=== PATIENT | female | born 1965 | race Caucasian/White ===

== ENCOUNTER 2021-08-22 18:24 | Observation (INO) | payer MEDICARE ==
[~2021-08-22] VITALS: Ht 160 cm; Wt 127.1 kg
[~2021-08-22 18:24] MED LIST: ALBU90I INH; ALBU90OI INH; AMIT25 PO; ARIP10 PO; CARB200 PO; CIPR500 PO; CITA20 PO; COMBIVENT RESPIM4 GM INH; CYCL10 PO; Cymbalta30 MG PO; DOXY100 PO; DULO60 PO; ERGO50000 PO; Esgic Tablet1 EACH PO; FLUSAL2505 IH; FURO20 PO; Flexeril 10 mg10 MG PO; GABA300 PO; GUAI600T33 PO; HYDACE10B PO; HYDSUL200 PO; Imitrex100 MG PO; Imitrex25 MG PO; LEVFLO500 PO; LOPE2C PO; METPRE4DP PO; MORP30 PO; NORT10 PO; OSEL75CA PO; OXYC10ER PO; PANT40 PO; PENVK500 PO; PHENA200 PO; POTCHL10ER PO; PRED10 PO; PRED20 PO; PREG200; PREG200 PO; PROM25 PO; Percocet 5-3251 EACH PO; SUMA25 PO; SUMA6I SC; TAMS.4ER PO; TIOT18 IH; TORSE20 PO; Valium5 MG PO
[2021-08-22 19:06] LABS: BASOPHILS ABSOLUTE AUTO 0.03 K/mm3 (0.00-0.23); BASOPHILS PERCENT AUTO 0 % (0-2); EOSINOPHILS ABSOLUTE AUTO 0.01 K/mm3 (0.00-0.68); EOSINOPHILS PERCENT AUTO 0 % (0-6); Hematocrit 44.5 % (33.0-51.0); Hemoglobin 14.9 g/dL (11.5-16.0); IMMATURE GRAN ABSOLUTE AUTO 0.07 K/mm3 (0.00-0.10); IMMATURE GRAN PERCENT AUTO 0 % (0-1); LYMPHOCYTES ABSOLUTE AUTO 1.25 K/mm3 (0.84-5.20); LYMPHOCYTES PERCENT AUTO 8 % (21-46); MONOCYTES PERCENT AUTO 7 % (4-13); Mean Corpuscular HGB 27.7 pg (26.0-34.0); Mean Corpuscular HGB Conc 33.5 g/dL (31.5-36.5); Mean Corpuscular Volume 83 fL (80-100); Mean Platelet Volume 11.7 fL (9.1-12.4); NEUTROPHILS PERCENT AUTO 85 % (41-73); Platelet Count 203 K/mm3 (150-400); RDW Coefficient Variation 16.9 % (11.7-14.2); RDW Standard Deviation 48.9 fL (35.1-46.3); Red Blood Cell Count 5.37 M/mm3 (3.80-5.20); White Blood Cell Count 16.36 K/mm3 (4.00-11.30)
[2021-08-22 21:08] LABS: Albumin, Blood 3.3 g/dL (3.4-5.0); Albumin/Globulin Ratio 0.9 (0.8-1.8); Bilirubin, Total 0.5 mg/dL (0.1-1.0); Bun/Creatinine Ratio 21.3 (12.0-20.0); Creatinine, Blood 1.08 mg/dL (0.40-1.00); Globulin, Blood 3.7 g/dL (2.2-4.0); Potassium, Blood 3.2 mmol/L (3.5-5.5)
[2021-08-23 02:00] LABS: Albumin/Globulin Ratio 0.9 (0.8-1.8); Bilirubin, Total 1.1 mg/dL (0.1-1.0); Bun/Creatinine Ratio 22.2 (12.0-20.0); Calcium, Blood 8.5 mg/dL (8.5-10.1); Creatinine, Blood 0.95 mg/dL (0.40-1.00); Globulin, Blood 3.4 g/dL (2.2-4.0); Potassium, Blood 3.1 mmol/L (3.5-5.5); Total Protein, Blood 6.4 g/dL (6.4-8.2)
[2021-08-23] MEDS ORDERED: GABA300 PO (03:21)
[2021-08-23] MEDS ORDERED: PRAZ1 PO (03:22)
[2021-08-23] MEDS ORDERED: ATOR40TA PO (03:22)
[2021-08-23] MEDS ORDERED: OLAN2.5 PO (03:23)
[2021-08-23] MEDS ORDERED: Carvedilol12.5 MG PO (03:24)
[2021-08-23] MEDS ORDERED: FURO40 PO (03:24)
[2021-08-23] MEDS ORDERED: FLUVOXAMINE MA100 M1 PO (03:25)
[2021-08-23] MEDS ORDERED: PANT40 (03:25)
[2021-08-23] MEDS ORDERED: POTA8 PO (03:26)
[2021-08-23] MEDS ORDERED: ZYRTEC10 M2 PO (03:28)
[2021-08-23] MEDS ORDERED: AMLO5 PO (03:29)
[2021-08-23] MEDS ORDERED: ZENPEP DR 20,01 EACH PO (03:34)
[2021-08-23] MEDS ORDERED: CREON DR 12,001 EACH PO (03:35)
[2021-08-23] MEDS ORDERED: ALBU2.5V5 INH (03:36)
[2021-08-23] MEDS ORDERED: AZELASTINE137 MCG/01 (03:36)
[2021-08-23] MEDS ORDERED: UBRELVY50 MG PO (03:37)
[2021-08-23] MEDS ORDERED: SUBVENITE150 M5 PO (03:38)
[2021-08-23] MEDS ORDERED: Flonase 0.05% N16 GM (03:38)
--- NOTE | 2021-08-23 04:16 | NUR ---
SHIFT SUMMARY PT CAME TO THE FLOOR AND HAS FELT NAUSEAOUS AND WAVES OF EPIGASTRIC PAIN INTERMITTENTLY. MEDICATED PER MAY. PT STATED SHE HAD A SMALL YEAST RASH FORMING IN HER GLUTEAL FOLDS WHICH HAPPENS FREQUENTLY AT HOME. MED REC DONE. CALL [facility] IN [place].
[2021-08-23 08:42] LABS: Hematocrit 42.1 % (33.0-51.0); Hemoglobin 13.1 g/dL (11.5-16.0); Mean Corpuscular HGB Conc 31.1 g/dL (31.5-36.5); Mean Corpuscular Volume 87 fL (80-100); Mean Platelet Volume 12.1 fL (9.1-12.4); Platelet Count 174 K/mm3 (150-400); RDW Coefficient Variation 17.3 % (11.7-14.2); RDW Standard Deviation 52.6 fL (35.1-46.3); Red Blood Cell Count 4.85 M/mm3 (3.80-5.20); White Blood Cell Count 12.69 K/mm3 (4.00-11.30)
--- NOTE | 2021-08-23 19:41 | NUR ---
SUMMARY- PT /O X4, INDEPENDANT IN THE ROOM. COMPLAINING OF EPIGASTRIC PAIN INTERMITTANT LIKE A SHARP STABBING KNIFE. AT FIRST GIVING FENT 25MCG APPROX Q2 WITH PARTIAL RELRIF FROM 10/14-08/14. ONCE FENT ORDERED 50MCG, THAT TOOK CARE OF PAIN AND PT WAS ABLE TO BE UPAMBULATING AND STATED SHE FINALLY FELT COMFORTABLE. DID NOT NEED TO MEDICATE THE REST OF THE SHIFT. REQUIRED ZOFRAN ONCE FOR NAUSEA WITH RELEIF. PT STARTED ON CLEAR DIET. TOLERATING WITHOUT NAUSEA. UNABLE TO PERFORM MRCP RELATED TO PT'S GIRTH. DR BAGLEY AWARE. REPORTED ALL TO LAURY DIEGO.
[2021-08-24 04:41] LABS: Hematocrit 39.6 % (33.0-51.0); Hemoglobin 12.4 g/dL (11.5-16.0); Mean Corpuscular HGB 27.4 pg (26.0-34.0); Mean Corpuscular HGB Conc 31.3 g/dL (31.5-36.5); Mean Corpuscular Volume 87 fL (80-100); Mean Platelet Volume 11.4 fL (9.1-12.4); Platelet Count 155 K/mm3 (150-400); RDW Coefficient Variation 17.5 % (11.7-14.2); RDW Standard Deviation 54.3 fL (35.1-46.3); Red Blood Cell Count 4.53 M/mm3 (3.80-5.20); White Blood Cell Count 10.35 K/mm3 (4.00-11.30)
[2021-08-24 05:04] LABS: Albumin, Blood 2.7 g/dL (3.4-5.0); Albumin/Globulin Ratio 0.9 (0.8-1.8); Bun/Creatinine Ratio 15.4 (12.0-20.0); Calcium, Blood 8.7 mg/dL (8.5-10.1); Creatinine, Blood 0.97 mg/dL (0.40-1.00); Potassium, Blood 3.5 mmol/L (3.5-5.5); Total Protein, Blood 5.7 g/dL (6.4-8.2)
--- NOTE | 2021-08-24 06:34 | NUR ---
SHIFT SUMMARY PT HAVING ABD PAIN, MEDICATED PER EMAR WITH PAIN MEDS AND ZOFRAN. PT PLEASANT AND COOPERATIVE. PT WAS ABLE TO GET SOME SLEEP OFF AND ON THROUGHOUT THE NIGHT. CALL LIGHT IS WITHIN PT REACH.
--- NOTE | 2021-08-24 18:46 | NUR ---
SHIFT SUMMARY PATIENT A&OX4. INDEPENDENT IN ROOM. C/O ABD PAIN AND NAUSEA, MEDICATED PER MAY. ON CLEAR LIQUID DIET. TOLERATING BETTER DAY PROGRESSED. PLAN FOR PATIENT TO HAVE MRCP AT OUTPATIENT IMAGING TOMORROW AT 10AM. PAPER ORDER AND QUESTIONAIRE ON CHART TO BE SENT WITH PATIENT. VSS. WILL CONTINUE TO MONITOR.
[2021-08-25] MEDS ORDERED: TRAZ50 PO (03:55)
[2021-08-25] MEDS ORDERED: ATROVENT HFA12.9 GM INH (04:03)
[2021-08-25] MEDS ORDERED: KLONOPIN0.5 M8 PO (04:06)
[2021-08-25] MEDS ORDERED: OZEMPIC0.25 MG/0. SC (04:06)
--- NOTE | 2021-08-25 04:50 | NUR ---
SHIFT SUMMARY ADMITTED FOR ABDOMINAL PAIN. FULL CODE. PLAN IS FOR MRCP SCAN TODAY AT [facility] IN [place]. SHE IS ON A CLEAR LIQUID DIET WHICH SHE FREQUENTLY OBJECTS TO. SHE IS INDEPENDENT AND WALKS IN THE HALLS. ON RA. A&O X4. MEDICATED FOR PAIN & NAUSEA THIS SHIFT.
[2021-08-25 05:54] LABS: Albumin, Blood 3.2 g/dL (3.4-5.0); Albumin/Globulin Ratio 0.9 (0.8-1.8); Bilirubin, Total 1.2 mg/dL (0.1-1.0); Bun/Creatinine Ratio 12.9 (12.0-20.0); Calcium, Blood 9.2 mg/dL (8.5-10.1); Creatinine, Blood 1.24 mg/dL (0.40-1.00); Globulin, Blood 3.4 g/dL (2.2-4.0); Potassium, Blood 3.9 mmol/L (3.5-5.5); Total Protein, Blood 6.6 g/dL (6.4-8.2)
--- NOTE | 2021-08-25 17:06 | NUR ---
SHIFT SUMMARY PATIENT IS ALERT AND ORIENTED X4. PATIENT HAS BEEN IND IN ROOM THIS SHIFT. PATIENT HAS TAKEN A SHOWER. PATIENT HAD NO ACUTE EVENTS THIS SHIFT. PATIENT LEFT FOR AN OUTPATIENT MRCP SCAN AND IS AWAITING RESULTS FROM MRCP SCAN. PATIENT HAS BEEN HAVING EPIGASTRIC PAIN AND MEDICATED PER EMAR. VITAL SIGNS REVIEWED. BED IN LOCKED AND LOWERED POSITION. WILL CONTINUE CARE UNTIL SHIFT CHANGE.
--- NOTE | 2021-08-26 01:03 | NUR ---
08/26/21 PATIENT WENT DOWN TO THE COFFEE CART AND BOUGHT CHICKEN AND A SALAD. PATIENT DID NOT EAT THE SALAD, OR DRINK THE COFFEE BUT ATE THE CHICKEN. PATIENT STATES SHE FORGOT SHE WAS ON A CLEAR LIQUID DIET. PT DENEIS PAIN AT THIS TIME, WITH CONTINUE TO MONITOR.
[2021-08-26 04:39] LABS: Hematocrit 43.2 % (33.0-51.0); Hemoglobin 13.3 g/dL (11.5-16.0); Mean Corpuscular HGB 27.2 pg (26.0-34.0); Mean Corpuscular HGB Conc 30.8 g/dL (31.5-36.5); Mean Corpuscular Volume 88 fL (80-100); Mean Platelet Volume 11.6 fL (9.1-12.4); Platelet Count 160 K/mm3 (150-400); RDW Coefficient Variation 16.8 % (11.7-14.2); RDW Standard Deviation 52.5 fL (35.1-46.3); Red Blood Cell Count 4.89 M/mm3 (3.80-5.20); White Blood Cell Count 9.64 K/mm3 (4.00-11.30)
[2021-08-26 04:56] LABS: Alanine Aminotransfer (ALT/SGP 151 U/L (12-78); Albumin/Globulin Ratio 0.8 (0.8-1.8); Alk Phos 261 U/L (50-136); Anion Gap 8 mmol/L (6-16); Aspartate Aminotrans (AST/SGOT 47 U/L (12-37); Bilirubin, Total 0.6 mg/dL (0.1-1.0); Blood Urea Nitrogen 14 mg/dL (8-24); Bun/Creatinine Ratio 10.9 (12.0-20.0); CO2, Blood 24 mmol/L (21-32); Calcium, Blood 9.2 mg/dL (8.5-10.1); Chloride, Blood 104 mmol/L (98-108); Creatinine, Blood 1.29 mg/dL (0.40-1.00); Globulin, Blood 3.6 g/dL (2.2-4.0); Glomerular Filtration Rate 49 (60-); Glucose, Blood 132 mg/dL (70-99); Potassium, Blood 3.9 mmol/L (3.5-5.5); Sodium, Blood 136 mmol/L (136-145); Total Protein, Blood 6.6 g/dL (6.4-8.2); Triglycerides 221 mg/dL (30-160)
--- NOTE | 2021-08-26 06:11 | NUR ---
Rn summary: Patient was medicated x1 for nausia and x1 for abd pain. Patient has been very sleepy, sitting on the edge of bed with eyes closed and wobbles. Patient was up walking in hallway several times, went into the [facility] to see her friend that is a pt back there, she was going into other rooms and had to be asked to go back to her room. Patient states she was sleep walking. Pt states her abdomen does not hurt from the chicken she ate last night. She states she does "kind of remember" going to coffee cart. Pt hopes to be discharged today.
[2021-08-26] MEDS ORDERED: ALBU2.5V5 INH (14:31)
[2021-08-26] MEDS ORDERED: AMLO5 PO (14:32)
[2021-08-26] MEDS ORDERED: Carvedilol12.5 MG PO (14:33)
[2021-08-26] MEDS ORDERED: CETI5 PO (14:33)
[2021-08-26] MEDS ORDERED: AZELASTINE137 MCG/01 (14:33)
[2021-08-26] MEDS ORDERED: CLON.5 PO (14:38)
[2021-08-26] MEDS ORDERED: Flonase 0.05% N16 GM (14:39)
[2021-08-26] MEDS ORDERED: FLUV50 PO (14:40)
[2021-08-26] MEDS ORDERED: GABA300 PO (14:41)
[2021-08-26] MEDS ORDERED: LASIX40 MG PO (14:41)
[2021-08-26] MEDS ORDERED: ATROVENT HFA12.9 GM INH (14:42)
[2021-08-26] MEDS ORDERED: LAMO100 PO (14:43)
[2021-08-26] MEDS ORDERED: ZENPEP DR 20,01 EACH PO (14:44)
[2021-08-26] MEDS ORDERED: OLAN2.5 PO (14:44)
[2021-08-26] MEDS ORDERED: PANT20 PO (14:45)
[2021-08-26] MEDS ORDERED: ROXICODONE5 MG PO (14:45)
[2021-08-26] MEDS ORDERED: KLOR-CON 1010 ME8 PO (14:46)
[2021-08-26] MEDS ORDERED: OZEMPIC0.25 MG/0. SC (14:48)
--- NOTE | 2021-08-26 16:02 | NUR ---
DISCHARGE SUMMARY PATIENT IS ALERT AND ORIENTED. PATIENT HAS BEEN IND. PATIENT HAS HAD NO ACUTE EVENTS THIS SHIFT. PATIENT HAS BEEN READ AND UNDERSTOOD DISCHARGE INSTRUCTIONS. PATIENTS MEDICATION[facility]. IV REMOVED WNL. PATIENT WAS WHEELED OUT BY THIS RN TO PATIENTS CAR.
== END 2021-08-26 16:50 | disposition home or self-care (01) ==
LOC: ER 18:24 → MEDS 18:25
PROVIDERS: Internal Medicine; Physician Assistant; ADMIT Internal Medicine
DX: R10.9 Unspecified abdominal pain (principal); K86.1 Other chronic pancreatitis; K83.8 Other specified diseases of biliary tract; E87.6 Hypokalemia; D72.829 Elevated white blood cell count, unspecified; G89.29 Other chronic pain; E66.2 Morbid (severe) obesity with alveolar hypoventilation; J44.9 Chronic obstructive pulmonary disease, unspecified; M06.9 Rheumatoid arthritis, unspecified; M79.7 Fibromyalgia; F17.200 Nicotine dependence, unspecified, uncomplicated; Z88.2 Allergy status to sulfonamides; Z88.1 Allergy status to other antibiotic agents; Z88.8 Allergy status to other drugs, medicaments and biological substances; Z79.899 Other long term (current) drug therapy
CPT/HCPCS: 36415; 74177; 76705; 80053; 83605; 83690; 84478; 84484; 85025; 85027; 93005; 93010; 94640; 94664; 94760; 96372; 96374-59; 96375; 96376; 99285-25; A9270; C9113; G0378; J1650; J2270; J2405; J3010; J3480; J7030; Q9967